=== PATIENT | male | born 2000 | race Caucasian/White ===

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

== ENCOUNTER 2018-02-09 00:37 | Emergency (ER) | payer OTHER, MEDICAID ==
[2018-02-09 00:54] VITALS: BP 124/75
[2018-02-09] MEDS ORDERED: BENZONATATE 100 MG CAPSULE PO ONE (01:42)
[2018-02-09] MEDS ORDERED: DIPHENHYDRAMINE HCL 25 MG CAPSULE PO ONE (01:48)
[2018-02-09] MEDS ORDERED: ALBUTEROL SULFATE HFA (90 MCG/PUFF) 8 GM MDI (1 MDI/ER DISP) IH ONE (01:51)
--- NOTE | 2018-02-09 01:58 | ER Document Report ---
ED General - General Chief Complaint: Cold Symptoms Stated Complaint: COLD SYMPTOMS, CONGESTION,RUNNY NOSE Time Seen by Provider: 02/09/18 01:31 Mode of Arrival: Ambulatory Information source: Patient Notes: Otherwise healthy male patient presents with complaints of sore throat, congestion, productive cough and headache for the last 7 days. Patient reports that he has tried [id number] cough syrup,, Advil and Mucinex with minimal relief. Patient denies any chills, nausea or vomiting. TRAVEL OUTSIDE OF THE [place] IN LAST 30 DAYS: No - Related Data Allergies/Adverse Reactions: No Known Drug Allergies Allergy (Verified 02/09/18 00:42) Past Medical History - General Information source: Patient - Social History Smoking Status: Never Smoker Frequency of alcohol use: None Drug Abuse: None Lives with: Family Family History: Reviewed & Not Pertinent Renal/ Medical History: Denies: Hx Peritoneal Dialysis Psychiatric Medical History: Reports: Hx Attention Deficit Hyperactivity Disorder, Hx Bipolar Disorder, Hx Obsessive Compulsive Disorder Past Surgical History: Reports: Hx Orthopedic Surgery - left shoulder surgery - Immunizations Immunizations up to date: Yes Hx Diphtheria, Pertussis, Tetanus Vaccination: Yes Review of Systems - Review of Systems Constitutional: No symptoms reported EENT: See HPI Cardiovascular: No symptoms reported Respiratory: No symptoms reported Gastrointestinal: No symptoms reported Genitourinary: No symptoms reported Male Genitourinary: No symptoms reported Musculoskeletal: No symptoms reported Skin: No symptoms reported Hematologic/Lymphatic: No symptoms reported Neurological/Psychological: No symptoms reported Physical Exam - Vital signs Vitals: Temp Pulse Resp BP Pulse Ox 98.8 F 105 H 18 124/75 96 02/09/18 00:51 02/09/18 00:51 02/09/18 00:51 02/09/18 00:51 02/09/18 00:51 - Notes Notes: PHYSICAL EXAMINATION: GENERAL: Well-appearing, well-nourished and in no acute distress. HEAD: Atraumatic, normocephalic. EYES: Pupils equal round and reactive to light, extraocular movements intact, sclera anicteric, conjunctiva are normal. ENT: Nares patent and erythemous, oropharynx clear without exudates. Moist mucous membranes. TTP to maxillary sinuses. NECK: Normal range of motion, supple without lymphadenopathy LUNGS: Breath sounds clear to auscultation bilaterally and equal. No wheezes rales or rhonchi. HEART: Regular rate and rhythm without murmurs ABDOMEN: Soft, nontender, nondistended abdomen. No guarding, no rebound. No masses appreciated. Musculoskeletal: Normal range of motion, no pitting or edema. No cyanosis. NEUROLOGICAL: Cranial nerves grossly intact. Normal speech, normal gait. Normal sensory, motor exams PSYCH: Normal mood, normal affect. SKIN: Warm, Dry, normal turgor, no rashes or lesions noted. Course - Re-evaluation Re-evalutation: Patients exam consistent with bronchitis and viral upper respiratory illness. Will place patient on tessalon pear;es and flonase to help ease symptoms. Patient is agreeable to this plan. - Vital Signs Vital signs: Temp Pulse Resp BP Pulse Ox 98.8 F 105 H 18 124/75 96 02/09/18 00:51 02/09/18 00:51 02/09/18 00:51 02/09/18 00:51 02/09/18 00:51 Discharge - Discharge Clinical Impression: Bronchitis Condition: Stable Disposition: HOME, SELF-CARE Additional Instructions: Bronchitis with Bronchospasm You have bronchitis with bronchospasm. Sometimes people develop wheezing with a chest cold. This occurs either because of an underlying tendency toward asthma or because the virus itself irritates the bronchial tubes. This irritation causes cough, shortness of breath, and wheezing. Emergency treatment of bronchospasm may include adrenaline shots or bronchodilator aerosol. You may feel lightheaded and have a rapid pulse for an hour or two. Rest and get plenty of fluids. At home, we'll treat you with a bronchodilator inhaler. Corticosteroids may be required for some patients. Until you recover, avoid chemical fumes, dusts, pollens, and exercising in very cold or dry air. If you smoke, stop now! Most cases of bronchitis get better without antibiotics. We prescribe antibiotics when we believe bacteria are damaging your airways, or if there's high risk the bronchitis will worsen into pneumonia. Increase your fluid intake. A cool mist humidifier may make your lungs more comfortable. An expectorant (cough medicine that loosens phlegm) can help. Repeated episodes of bronchitis and bronchospasm may result in lung damage -- for example, chronic bronchitis, recurrent pneumonias, or emphysema. If you develop a fever, increased wheezing, chest pain, or severe shortness of breath, you should contact the doctor immediately. Get plenty of rest. Take medications as directed. Drink plenty of fluids. Continue to take tylenol and/or motrin for fever or pain. Return to the emergency department if you develop worsening symptoms such as fever that is uncontrolled by Tylenol or Motrin, worsening shortness of breath or difficulty breathing. Prescriptions: Benzonatate [Tessalon Perle 100 mg Capsule] 1 - 2 cap PO ASDIR PRN #40 cap PRN Reason: Cough Fluticasone Propionate [Flonase Nasal Marion 50 Mcg/Marion 16 gm] 2 spray NAREB BID #1 bottle Referrals: CHRISTOPHE CUEVA MD [Primary Care Provider] - Follow up as needed
== END 2018-02-09 02:28 | disposition home or self-care (01) ==
LOC: ER 00:37
DX: J40 Bronchitis, not specified as acute or chronic (principal); J02.9 Acute pharyngitis, unspecified; R05 Cough; R51 Headache
CPT/HCPCS: 99283; J3490

== ENCOUNTER 2018-05-14 19:46 | Emergency (ER) | payer OTHER, MEDICAID ==
[2018-05-14 20:44] VITALS: BP 130/66
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
--- NOTE | 2018-05-15 00:02 | ER Document Report ---
HPI - HPI Patient complains to provider of: right knee Onset: Yesterday Onset/Duration: Constant Quality of pain: Dull Pain Level: 5 Notes: Patient states yesterday he was playing basketball with friends, planted his right leg and twisted that he heard a pop. Patient states increased pain throughout the day and now he is unable to put weight on the right leg. Patient states he took Motrin, Aleve, naproxen all within the last 4 hours. Patient denies LOC or hitting his head neck or back yesterday. - CONSTITUTIONAL Constitutional: DENIES: Fever, Chills - MUSCULOSKELETAL Musculoskeletal: REPORTS: Extremity pain Past Medical History - General Information source: Patient - Social History Smoking Status: Never Smoker Chew tobacco use (# tins/day): No Frequency of alcohol use: Occasional Drug Abuse: None Family History: Reviewed & Not Pertinent Patient has suicidal ideation: No Patient has homicidal ideation: No Renal/ Medical History: Denies: Hx Peritoneal Dialysis Psychiatric Medical History: Reports: Hx Attention Deficit Hyperactivity Disorder, Hx Bipolar Disorder, Hx Obsessive Compulsive Disorder Past Surgical History: Reports: Hx Orthopedic Surgery - left shoulder surgery - Immunizations Immunizations up to date: Yes Hx Diphtheria, Pertussis, Tetanus Vaccination: Yes Vertical Provider Document - CONSTITUTIONAL Agree With Documented VS: Yes General Appearance: WD/WN, No Apparent Distress - INFECTION CONTROL TRAVEL OUTSIDE OF THE [place] IN LAST 30 DAYS: No - HEENT HEENT: Atraumatic, Normocephalic - NECK Neck: Normal Inspection, Supple - RESPIRATORY Respiratory: Breath Sounds Normal, No Respiratory Distress - CARDIOVASCULAR Cardiovascular: Regular Rate, Regular Rhythm - GI/ABDOMEN Gastrointestinal: Abdomen Soft, Abdomen Non-Tender - BACK Back: Normal Inspection - No cervical, lumbar, thoracic spinal pain - MUSCULOSKELETAL/EXTREMETIES Notes: Left lower and upper extremities within normal limits. Right upper extremity within normal limits. Pain right knee upon anterior draw. No valgus or varus tenderness. No swelling or ecchymosis noted - NEURO Level of Consciousness: Awake, Alert, Appropriate Motor/Sensory: No Motor Deficit, No Sensory Deficit Course - Re-evaluation Re-evalutation: Patient's x-ray revealed no bony abnormalities and no effusion. Will give patient orthopedic follow-up. - Vital Signs Vital signs: Temp Pulse Resp BP Pulse Ox 98.1 F 87 16 130/66 H 99 09/07/18 20:42 05/14/18 20:42 05/14/18 20:42 05/14/18 20:42 05/14/18 20:42 Discharge - Discharge Clinical Impression: Knee injury Qualifiers: Encounter type: initial encounter Laterality: right Qualified Code(s): S89.91XA - Unspecified injury of right lower leg, initial encounter Condition: Stable Disposition: HOME, SELF-CARE Instructions: Use of Crutches ([facility]), Ice & Elevation ([facility]), Knee Immobilizing Splint ([facility]) Additional Instructions: You are to follow-up with orthopedic number given. Continue to take Tylenol, Motrin [id number] for pain and discomfort. Wear brace and use crutches as discussed. Referrals: CHRISTOPHE CUEVA MD [Primary Care Provider] - Follow up as needed TASHA BARRIENTOS MD [ACTIVE STAFF] - Follow up as needed
== END 2018-05-15 00:10 | disposition home or self-care (01) ==
LOC: ER 19:46
DX: S89.91XA Unspecified injury of right lower leg, initial encounter (principal); M25.561 Pain in right knee; X50.1XXA Overexertion from prolonged static or awkward postures, initial encounter
CPT/HCPCS: 99283; 73564; L1830

== ENCOUNTER 2018-10-26 17:13 | Emergency (ER) | payer OTHER, MEDICAID ==
[2018-10-26 17:28] VITALS: BP 152/87
== END 2018-10-26 17:38 | disposition left against medical advice (07) ==
LOC: ER 17:13
DX: Z53.21 Procedure and treatment not carried out due to patient leaving prior to being seen by health care provider (principal)

== ENCOUNTER → 2020-08-15 | Outpatient (CLI) | payer MEDICAID ==
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
== END ==
LOC: RAD 07:24
PROVIDERS: ATTEND Internal Medicine Gastroenterology
DX: B18.2 Chronic viral hepatitis C (principal)
CPT/HCPCS: 76700